=== PATIENT | female | born 1995 | race Caucasian/White ===

== ENCOUNTER 2019-04-16 14:24 | Outpatient (CLI) | payer BC ==
[2019-04-16 15:02] LABS: BHCG - Serum Negative (NEGATIVE); Pregs Control Background? CLEAR/WHITE (CLR/WHITE); Pregs Control Bar Appear? YES (CONTROL BAR)
--- NOTE | 2019-04-16 15:39 | RAD ---
Frontal radiograph chest 2 views of abdomen: 04/16/2019 COMPARISON: None HISTORY: Left upper quadrant pain FINDINGS: Frontal radiograph chest demonstrates no pneumothorax, pleural fluid, focal consolidation, or alveolar edema. Upright imaging demonstrates no free intraperitoneal air. The bowel gas pattern appears nonobstructed. IMPRESSION: No acute findings.
== END 2019-04-16 14:25 | disposition home or self-care (01) ==
LOC: SCSRAD 14:24
PROVIDERS: ATTEND Nurse Practitioner Family
DX: R10.12 Left upper quadrant pain (principal)
CPT/HCPCS: 36415; 74022; 84703